=== PATIENT | female | born 1965 | race Caucasian/White ===

== ENCOUNTER → 2016-11-20 | Outpatient (CLI) | payer MEDICARE, MEDICAID ==
[~2016-11-20] MED LIST: ASA325 MG PO; ASCORBIC ACID500 MG PO; DELTASONE DPS5 MG PO; FOLVITE-DPS1 MG PO; GLUCOSAMINE &1 EAC1 PO; METHOTREXATE2.5 MG PO; MINOCIN DPS100 MG PO; MIRALAX PACKET17 GM PO; PROTONIX40 MG PO; SENOKOT S1 TAB PO; THERAPEUTIC MUL1 TAB PO; TYLENOL DPS325 MG PO; ULTRAM DPS50 MG PO; VESICARE5 MG PO; VITAMIN B-12500 MCG PO; VITAMIN D1000 UNIT PO
== END | disposition home or self-care (01) ==
LOC: PTH.S 10:55
DX: Z01.818 Encounter for other preprocedural examination (principal)

== ENCOUNTER 2016-12-01 09:50 | Inpatient (IN) | payer MEDICARE, MEDICAID ==
[~2016-12-01] VITALS: Ht 160 cm; Wt 117.7 kg
--- NOTE | 2016-12-02 08:17 | OR ---
ADMIT: 12/01/2016 RM/LOC: 530 [facility] MR#: [id number] [id number] [address] DENNIS GONZALES [address] [place] [address] Operative/Delivery Room Report SEX: F AGE: 51 : 1965 SURGERY DATE: 12/01/2016 SURGEON: Tayler Salinas MD PREOPERATIVE DIAGNOSIS: Severe arthritis of the left hip. POSTOPERATIVE DIAGNOSIS: Severe arthritis of the left hip. PROCEDURE: Left total hip arthroplasty. ASSISTED BY: SAUL Jeffries. SECOND HAND OUTSIDE CUTTER: Francesco Valdivia PA-C. ANESTHESIA: Spinal. ESTIMATED BLOOD LOSS: 200 mL. COMPLICATIONS: None. SPECIMEN: Bone. COMPONENTS: DePuy #3 high offset Porous [place] femoral stem, 52 mm Sector cup with one 25 mm fixation screw and a neutral liner, 36 mm ceramic head with a 8.5 neck length. DESCRIPTION OF PROCEDURE: This patient was brought to the operating room after satisfactory level of anesthesia was achieved. She was placed on the table in a right lateral decubitus position. All bony prominences were well padded. The left hip was then circumferentially prepped and draped in the usual sterile fashion. An extended posterior approach to the left hip was made through a very deep subcutaneous layer. The iliotibial band and tensor fascia were identified and incision was made in the iliotibial band and then the gluteus kiera was split posteriorly. The gluteus medius was then identified and retracted anteriorly. The piriformis was released from the piriformis fossa and then a capsulotomy was performed and this soft tissue was then reflected posteriorly and the hip dislocated. There was severe wear of both the femoral head and acetabulum. The piriformis fossa was opened with a step drill, a canal finder was used by hand, then a lateralizing reamer was used and I was able to ream up for a #3 Porous [place] femoral stem, my neck cut was made using an external alignment guide. Then, I was able to seat a #3 femoral broach. After proper positioning then on the femur, hypertrophic synovium was resected around the acetabulum. Redundant or torn labrum was then removed as well and after appropriate positioning of retractors, I first started with a 43 mm reamer and reamed up to 51 mm seating a 52 mm sector cup in an anatomic position based on internal landmarks and fixed with a single 25 mm fixation screw in the dome. A trial liner was placed in the acetabulum, and after trying various neck lengths as well as offset, I found that a high offset, 8.5 neck length gave us the best range of motion and stability. All ADMIT: 12/01/2016 RM/LOC: 530 [facility] MR#: [id number] [address] [address] DENNIS GONZALES [address] [place] [address] Operative/Delivery Room Report SEX: F AGE: 51 : 1965 trial components were then removed. Local was used per protocol and then after thorough irrigation of the hip, my acetabular liner was impacted into position and found to be stable. A #3 high offset stem was impacted into the femur and my ceramic head was then impacted onto the hip and then the hip reduced. Once again, I could flex the hip to 90 degrees, completely adduct her hip and internally rotate her hip to 90 degrees before she would start to sublux posteriorly. Likewise with abduction, extension, and external rotation, I could not dislocate her anteriorly. At this point, the posterior capsule was closed with cottony Dacron suture and #5 Ethibond. The piriformis tendon was repaired with #5 Ethibond through bone tunnels into the trochanter and after thorough irrigation of the wound, the iliotibial band and gluteus kiera fascia were closed with interrupted #1 Vicryl and running #2 Quill suture. Because of its depth, the subcutaneous tissue was closed in multiple layers and ultimately the skin was closed with carol. A sterile dressing was applied to the wound. The patient was then transferred from the operative suite in stable condition. Tayler Salinas MD/ dev JOB #: [id number] CC: Tayler Salinas, Attending Physician Shelley Alvarez, Family Physician
[2016-12-05] MEDS ORDERED: ASA325 MG PO (09:50)
[2016-12-05] MEDS ORDERED: DELTASONE DPS5 MG PO (09:50)
[2016-12-05] MEDS ORDERED: FOLVITE-DPS1 MG PO (09:50)
[2016-12-05] MEDS ORDERED: GLUCOSAMINE &1 EAC1 PO (09:51)
[2016-12-05] MEDS ORDERED: MINOCIN DPS100 MG PO (09:52)
[2016-12-05] MEDS ORDERED: METHOTREXATE2.5 MG PO (09:52)
[2016-12-05] MEDS ORDERED: THERAPEUTIC MUL1 TAB PO (09:53)
[2016-12-05] MEDS ORDERED: PROTONIX40 MG PO (09:53)
[2016-12-05] MEDS ORDERED: SENOKOT S1 TAB PO (09:53)
[2016-12-05] MEDS ORDERED: MIRALAX PACKET17 GM PO (09:53)
[2016-12-05] MEDS ORDERED: TYLENOL DPS325 MG PO (09:54)
[2016-12-05] MEDS ORDERED: VESICARE5 MG PO (09:55)
[2016-12-05] MEDS ORDERED: ULTRAM DPS50 MG PO (09:55)
[2016-12-05] MEDS ORDERED: VITAMIN B-12500 MCG PO (09:55)
[2016-12-05] MEDS ORDERED: ASCORBIC ACID500 MG PO (09:55)
[2016-12-05] MEDS ORDERED: VITAMIN D1000 UNIT PO (09:56)
--- NOTE | 2016-12-08 08:14 | CO ---
ADMIT: 12/01/2016 RM/LOC: W.04 [facility] MR#: [id number] [address] [address] DENNIS GONZALES [address] [place] [address] Consultation Report SEX: F AGE: 51 : 1965 DATE OF CONSULTATION: 11/20/2016 ATTENDING PHYSICIAN: Tayler Salinas CONSULTING PHYSICIAN: Del Joya, DATE OF PLANNED SURGERY: 12/01/2016. HISTORY OF PRESENT ILLNESS: This is a 51-year-old female patient with rheumatoid arthritis, who plans to undergo left hip replacement on the [address] Salinas. She has had bilateral knee replacements. She has a history of rheumatoid arthritis, learning disability, chronic prednisone therapy, but no other major surgeries or health concerns according to her sister. She takes folic acid, minocycline, methotrexate, prednisone, VESIcare, vitamin B12, One A Day multivitamin, vitamin D3, vitamin C, glucosamine, and Tylenol on a regular basis. SOCIAL HISTORY: She lives independently, but has siblings in the region that assist with her care and will help with her post hospital followup. She does not smoke or drink. FAMILY HISTORY: Noncontributory. Both of her parents are . REVIEW OF SYSTEMS: Negative for chest pain, shortness of breath, cough, or sputum production. No fevers, chills, nausea, vomiting, diarrhea, constipation, hematemesis, hematochezia, melena, or clotting. PHYSICAL EXAMINATION: GENERAL: She is obese, pleasant, alert, and in no apparent distress. She weighs 239 pounds. She has body mass index of 42.3. Her blood pressure is 128/82. EAR, NOSE, AND THROAT: Normal. No JVD or bruit. HEART: Regular. ADMIT: 12/01/2016 RM/LOC: W.04 [facility] MR#: [id number] [address] [address] DENNIS GONZALES [facility] [place] [address] Consultation Report SEX: F AGE: 51 : 1965 LUNGS: Clear. ABDOMEN: Soft, nontender. EXTREMITIES: No edema. EKG is sinus rhythm, and labs are reviewed and within healthy range. IMPRESSION: Rheumatoid arthritis, degeneration of the left hip with planned surgical replacement. I think she is an appropriate surgical candidate. We will plan to use aspirin DVT prophylaxis postoperatively. She will be dismissed to the care of her sister, who has made arrangements for rehabilitation management in [place]. Del Joya DO/ dev JOB #: [id number] CC: Tayler Salinas, Attending Physician Shelley Alvarez, Family Physician
--- NOTE | 2016-12-08 12:15 | HP ---
ADMIT: 12/01/2016 RM/LOC: W.[facility] MR#: [id number] [address] [address] DENNIS GONZALES [place] [address] Pre-OP History and Physical SEX: F AGE: 51 : 1965 DATE OF SERVICE: CHIEF COMPLAINT: Osteoarthritis, left hip. HISTORY OF PRESENT ILLNESS: This patient presents today for left total hip arthroplasty. She has had bilateral total knees in the past. Has done very well following those procedures. She has had all the usual conservative care including therapy, medication and now with her severe arthritis, she presents for surgical treatment. PAST MEDICAL HISTORY: She has had bilateral total knees in the past. MEDICATIONS: 1. Fish oil. 2. Calcium. 3. Folic acid. 4. Multivitamin. 5. Minocycline. 6. Prednisone. 7. Methotrexate. ALLERGIES: NO ALLERGIES TO MEDICATIONS. FAMILY HISTORY: Positive for diabetes. SOCIAL HISTORY: Nonsmoker. She lives in [place]. REVIEW OF SYSTEMS: Essentially negative. PHYSICAL EXAMINATION: This patient has no internal rotation of the left hip. She has full flexion. She abducts 30 degrees. She has about 20 degrees of external rotation. RADIOGRAPHS: Show very severe osteoarthritis with joint space collapse, subchondral sclerosis, mild erosion of the superior acetabulum. IMPRESSION: Severe left hip osteoarthritis. RECOMMENDATIONS: Left total hip arthroplasty. The risks, benefits, alternatives as well as potential complications were discussed. Tayler Salinas MD/ dev JOB #: [id number] CC: Tayler Salinas, Attending Physician Shelley Alvarez, Family Physician
--- NOTE | 2016-12-28 07:38 | DS ---
ADMIT: 12/01/2016 RM/LOC: 530 [facility] MR#: [id number] [address] [address] DENNIS GONZALES [address] [place] [address] General Discharge Summary SEX: F AGE: 51 : 1965 ADMISSION DATE: 12/01/2016 DISCHARGE DATE: 12/04/2016 REASON FOR ADMISSION: Elective left total hip arthroplasty after failing conservative management. PREOPERATIVE DIAGNOSIS: Severe arthritis of the left hip. POSTOPERATIVE DIAGNOSIS: Severe osteoarthritis of the left hip. PROCEDURE PERFORMED: Left total hip arthroplasty. SURGEON: Tayler Salinas MD RFID SYSTEMS ENGINEER: SAUL Jfefries. SECOND RFID SYSTEMS ENGINEER: Francesco Valdivia PA-C ANESTHESIA: Spinal. ESTIMATED BLOOD LOSS: 200 mL. COMPLICATIONS: None. ACTIVE MEDICAL PROBLEMS: History of rheumatoid arthritis, learning disability, chronic prednisone therapy, and bilateral knee replacements. HOSPITAL COURSE: The patient was admitted on 12/01/2016 for elective left total hip arthroplasty done successfully without any complications by Dr. Salinas. The patient tolerated the procedure well. Postoperatively, she did well with pain control. She did suffer from some expected acute blood loss anemia. Her hemoglobin dropped to 10.5, but she remained hemodynamically stable and did not require blood transfusion. By postoperative day #3, she was safe, stable, and participating well with physical therapy. She was ready for discharge to a swing bed in [place] with plans for outpatient home physical therapy exercises. DISCHARGE MEDICATIONS: 1. Aspirin 325 mg at night. 2. Deltasone 5 mg twice a day. 3. Folvite 1 mg twice a day. 4. Glucosamine/chondroitin 750 mg twice a day. 5. Methotrexate 2.5 mg on at 9. ADMIT: 12/01/2016 RM/LOC: 530 [facility] MR#: [id number] [address] [address] [place] DENNIS Weber [facility] [place] [address] General Discharge Summary SEX: F AGE: 51 : 1965 6. Minocin 100 mg twice a day. 7. MiraLax 17 g daily. 8. Protonix 40 mg every night. 9. Senokot 2 tablets every night. 10.Tylenol 325 mg 2 tablets every 6 hours as needed. 11.Ultram 50 mg 1 to 2 tablets every 6 hours as needed. 12.VESIcare 5 mg at night. DISCHARGE INSTRUCTIONS: [facility] with plans for home exercises per total hip arthroplasty protocol. Follow up in the orthopedic office in 2 weeks for wound check and in 6 weeks with x-ray. Follow up with primary care as directed. SAUL Jeffries / Tayler Salinas MD / dve JOB #: [id number] CC: Tayler Salinas MD, Attending Physician Shelley Alvarez MD, Family Physician
== END 2016-12-04 11:29 | DRG 470 ==
LOC: WOR 09:50 → 5MS 09:50
PROVIDERS: ADMIT Orthopaedic Surgery
PROC: 0SRB04A Replacement of Left Hip Joint with Ceramic on Polyethylene Synthetic Substitute, Uncemented, Open Approach (ICD-10-PCS; principal; 2016-12-01)
DX: M16.12 Unilateral primary osteoarthritis, left hip (principal); Z68.41 Body mass index [BMI] 40.0-44.9, adult; D62 Acute posthemorrhagic anemia; M06.9 Rheumatoid arthritis, unspecified; F81.9 Developmental disorder of scholastic skills, unspecified; E66.9 Obesity, unspecified; Z79.52 Long term (current) use of systemic steroids; Z96.653 Presence of artificial knee joint, bilateral